=== PATIENT | female | born 1945 | race Caucasian/White ===

== ENCOUNTER 2019-08-14 09:57 | Inpatient (IN) | payer MEDICARE, BC ==
[~2019-08-14] VITALS: Ht 170.2 cm; Wt 59.7 kg
[2019-08-14] VITALS (11 sets, daily range): BP systolic 100–168; BP diastolic 50–85
[2019-08-14] MEDS ORDERED: heparin 10,000 units/1 ML INJ IV ONE (10:10)
[2019-08-14] MEDS ORDERED: NO HOME MEDS (10:14)
[2019-08-14] MEDS: heparin 25,000 UNIT/250ml bag 250 ML IV SCH (10:37)
[2019-08-14 10:38] LABS: PARTIAL THROMBOPLASTIN TIME 21 SECONDS (22-32)
[2019-08-14] MEDS ORDERED: morphine 4 MG/ML inj SYRINge IV ONE (10:50)
[2019-08-14] MEDS ORDERED: ondansetron/PF 4mg/2ml inj IV ONE (10:50)
[2019-08-14] MEDS ORDERED: metoprolol tartrate 1mg/ml inj IV ONE (11:55)
[2019-08-14] MEDS ORDERED: normal saline 1000ml 1,000 ML IV SCH (11:55)
[2019-08-14] MEDS ORDERED: MAGNESIUM SULFATE 4 MEQ/ML (5gm/10ml) injection ONE (12:00)
[2019-08-14] MEDS ORDERED: calcium chloride 100 MG/1 ML inj IV ONE (12:00)
[2019-08-14] MEDS ORDERED: aminocaproic acid 250 MG/1 ML inj. ONE (12:00)
[2019-08-14] MEDS ORDERED: ondansetron/PF 4mg/2ml inj IV PRN (12:00)
[2019-08-14] MEDS ORDERED: magnesium hydroxide 30ml (MOM) UD suspension PO PRN ×2 (12:00→19:30)
[2019-08-14] MEDS ORDERED: FLU VACC QS2019-20 36MOS UP/PF 60 MCG/0.5 ML SYRINGE IMVAC ONE (12:00)
[2019-08-14] MEDS ORDERED: phenylephrine 10mg/ml inj. ONE (12:00)
[2019-08-14] MEDS ORDERED: methylPREDNISolone sod. succ. 500mg inj ONE (12:00)
[2019-08-14] MEDS ORDERED: potassium Cl 2 mEq/ml inj IV ONE (12:00)
[2019-08-14] MEDS ORDERED: heparin 10,000 units/1 ML INJ ONE ×2 (12:00)
[2019-08-14] MEDS ORDERED: acetaminophen 325mg tablet PO PRN ×2 (12:00→19:30)
[2019-08-14] MEDS ORDERED: papaverine 30 mg/ml 2ml inj. ONE (12:00)
[2019-08-14] MEDS ORDERED: mag hydrox/Alum hydrox/simeth 30ml oral suspension PO PRN (12:00)
[2019-08-14] MEDS ORDERED: albumin (human) 25% 100 ML IV solution IV ONE (12:00)
[2019-08-14] MEDS ORDERED: heparin 1,000 units/ml 10ml inj ONE (12:00)
[2019-08-14] MEDS ORDERED: morphine 2 MG/ML inj. syringe IV PRN ×2 (12:00)
[2019-08-14] MEDS ORDERED: LIDOcaine 2% (20 mg/ml) 5ml cardiac syringe ONE (12:00)
[2019-08-14] MEDS ORDERED: sodium bicarbonate (8.4%) 1 mEq/ml syringe ONE (12:00)
--- NOTE | 2019-08-14 12:46 | NUR ---
ASSUMED CARE OF PT FROM PETER ROLLE, PHARMACY IS REQUESTING CREATINE LEVEL BEFORE STARTING TIROFIBAN
--- NOTE | 2019-08-14 12:57 | NUR ---
DR WARE GAVE VERBAL ORDERS FOR MEDS, PHARMACY WAS HELPING INPUT THOSE ORDERS BUT THERE NEEDS TO BE A CREATININE LEVEL DRAWN FIRST, PHARMACY ADCVISED THEY WOULD BE INPUTING THE ORDER FOR THE CREATININE DRAW.
--- NOTE | 2019-08-14 13:07 | NUR ---
PT IS RESTING QUIETLY ON GURNEY, GCS 15, RESP EVEN AND UNLABORED, SKIN P/W/D, NO CHEST PAIN/DISCOMFORT, NO N/V, SR ON THE MONITOR, NO ECTOPY, STARTED 2ND IV ON RT AC, 20GU ON FIRST ATTEMPT
[2019-08-14 13:09] LABS: ALANINE AMINOTRANSFERASE 15 U/L (12-78); ALBUMIN 3.5 G/DL (3.4-5.0); ALBUMIN/GLOBULIN RATIO 0.9 (1.1-1.5); ALKALINE PHOSPHATASE 99 IU/L (46-116); ANION GAP 12 (8-16); ASPARTATE AMINO TRANSFERASE 19 U/L (10-37); BILIRUBIN,TOTAL 0.3 MG/DL (0.1-1.0); BLOOD UREA NITROGEN 9 MG/DL (7-18); BUN/CREATININE RATIO 11.8 (6.6-38.0); CALCIUM 8.3 MG/DL (8.5-10.1); CHLORIDE 111 MMOL/L (99-107); CREATININE 0.76 MG/DL (0.40-0.90); GLUCOSE 108 MG/DL (70-104); POTASSIUM 4.2 MMOL/L (3.5-5.1); SODIUM 145 MMOL/L (135-145); TOTAL CARBON DIOXIDE 22.5 MMOL/L (24-32); TOTAL PROTEIN 7.4 G/DL (6.4-8.2); eGFR 75 ML/MIN
--- NOTE | 2019-08-14 13:09 | NUR ---
PT IS AWARE OF PLAN TO GO TO FASHION DIRECTOR AT 1800
[2019-08-14] MEDS: normal saline 1000ml 1,000 ML IV SCH (13:15)
--- NOTE | 2019-08-14 14:00 | NUR ---
Pt arrived to floor. Vitals stable, Pt alert and oriented. Pt oriented to room, bed, call light.
[2019-08-14] MEDS ORDERED: fentaNYL/PF 50MCG/1 ML 2ML syringe ONE (15:50)
[2019-08-14] MEDS ORDERED: midazolam 2 mg/2 ml injection ONE (15:50)
[2019-08-14] MEDS: tirofiban 5mg in NS 100mL 100 ML IV SCH ×2 (15:50→19:37)
[2019-08-14] MEDS ORDERED: iohexol 350 MG/ML 50ML vial IV ONE ×2 (15:51→16:49)
[2019-08-14] MEDS ORDERED: LIDOcaine 1% (10mg/ml)w/preservative injection 20ml MDV ONE (15:51)
[2019-08-14] MEDS ORDERED: iohexol 350MG/ML 100ml bottle IV ONE (15:51)
--- NOTE | 2019-08-14 16:18 | NUR ---
Pt wheeled down in bed to chemistry lab instructor.
--- NOTE | 2019-08-14 16:53 | NUR ---
PAGER ID: [phone] MESSAGE: 2016, Paris Buchanan has a critical 6 hour trop of 3.14. Patient is currently in the landscape laborer. LATA
--- NOTE | 2019-08-14 17:30 | NUR ---
Problems reprioritized. Patient report given, questions answered & plan of care reviewed with Fuentes ROLLE, CICU.
--- NOTE | 2019-08-14 17:43 | NUR ---
Problems reprioritized. Patient report given, questions answered & plan of care reviewed with Fuentes in CICU.
--- NOTE | 2019-08-14 18:21 | NUR ---
Patient arrived to floor at 1805 from short stay and oriented to room. Right sheath sight stable; transduced to monitor. Patient alert and oriented with call light in reach. Report given to Shanita ROLLE with all questions answered.
--- NOTE | 2019-08-14 18:32 | NUR ---
Patient in room CICU 2013. I have received report and had the opportunity to ask questions and assume patient care.
[2019-08-14] MEDS: metoprolol tartrate 25mg tablet PO SCH (19:12)
[2019-08-14] MEDS: carVEDilol 3.125mg tablet PO SCH (19:12)
--- NOTE | 2019-08-14 19:18 | NUR ---
vascular at bedside to perform vein mapping
[2019-08-14] MEDS ORDERED: HYDROcodone/acetaminophen 10/325mg tab PO PRN ×2 (19:30)
[2019-08-14] MEDS ORDERED: proCHLORperazine 10 MG/2 ml inj IV PRN (19:30)
[2019-08-14] MEDS ORDERED: nitroGLYCERIN 0.4mg SUBLingual tab SL PRN (19:30)
[2019-08-14] MEDS: nitroGLYCERIN-Tridil 50MG/D5W 250 ML IV SCH (19:30)
[2019-08-14] MEDS ORDERED: morphine 10mg/ml inj. IV PRN (19:30)
[2019-08-14] MEDS ORDERED: OXAZEpam 15mg capsule PO PRN (19:30)
[2019-08-14] MEDS ORDERED: cyclobenzaprine 10mg tablet PO PRN (19:30)
[2019-08-14] MEDS: docusate sod 100mg capsule PO SCH (21:51)
[2019-08-14] MEDS: heparin 10,000 units/1 ML INJ IV PRN (22:48)
[2019-08-15] VITALS (22 sets, daily range): BP systolic 91–170; BP diastolic 43–85
[2019-08-15] MEDS: normal saline 1000ml 1,000 ML IV SCH ×2 (00:31→21:50)
[2019-08-15] MEDS: morphine 4 MG/ML inj SYRINge IV PRN ×3 (00:58→20:18)
[2019-08-15 04:19] LABS: BASOPHILS % (AUTO) 0.4 % (0-1); EOSINOPHILS # (AUTO) 0.1 X10'3 (0-0.9); EOSINOPHILS % (AUTO) 0.6 % (0-6); HEMATOCRIT 34.5 % (35.0-45.0); HEMOGLOBIN 11.5 g/dl (12.0-16.0); LYMPHOCYTES # (AUTO) 2.5 X10'3 (1.1-4.8); LYMPHOCYTES % (AUTO) 28.2 % (21-51); MEAN CORPUSCULAR HEMOGLOBIN 30.1 PG (27.0-31.0); MEAN CORPUSCULAR HGB CONC 33.3 g/dL (33.0-36.5); MEAN CORPUSCULAR VOLUME 90.4 FL (78-98); MEAN PLATELET VOLUME 9.3 FL (7.4-10.4); MONOCYTES # (AUTO) 0.5 X10'3 (0-0.9); MONOCYTES % (AUTO) 5.8 % (2-12); NEUTROPHILS # (AUTO) 5.7 X10'3 (1.8-7.7); PLATELET COUNT 215 X10'3 (140-440); RED BLOOD COUNT 3.82 X10'6 (4.20-5.60); RED CELL DISTRIBUTION WIDTH 14.1 % (11.5-14.5); WHITE BLOOD COUNT 8.8 X10'3 (4.5-11.0)
[2019-08-15 04:24] LABS: ALBUMIN 2.9 G/DL (3.4-5.0); ANION GAP 10 (8-16); BLOOD UREA NITROGEN 10 MG/DL (7-18); BUN/CREATININE RATIO 14.3 (6.6-38.0); CALCIUM 7.9 MG/DL (8.5-10.1); CHLORIDE 107 MMOL/L (99-107); GLUCOSE 118 MG/DL (70-104); POTASSIUM 3.7 MMOL/L (3.5-5.1); SODIUM 143 MMOL/L (135-145); TOTAL CARBON DIOXIDE 25.6 MMOL/L (24-32); eGFR 82 ML/MIN
[2019-08-15] MEDS: tirofiban 5mg in NS 100mL 100 ML IV SCH (04:56)
--- NOTE | 2019-08-15 07:23 | NUR ---
Report given to Krysta Couch RN.
[2019-08-15] MEDS ORDERED: atorvastatin 20mg tablet PO SCH ×2 (08:00)
[2019-08-15] MEDS ORDERED: aspirin 81mg tablet.DR PO SCH (08:00)
[2019-08-15] MEDS ORDERED: insulin regular, human 100 UNIT in normal saline 100ml IV soln 100 ML IV SCH ×2 (09:11)
[2019-08-15] MEDS ORDERED: dextrose 50%-water 50ml dispensing syringe IV PRN (09:15)
[2019-08-15] MEDS ORDERED: MESSAGE TO NURSING PO ONE ×5 (09:15→10:00)
[2019-08-15] MEDS ORDERED: vancomycin/NS 1 GM ADD-VANTAGE 250 ML IV ONE (09:15)
[2019-08-15] MEDS ORDERED: potassium Cl 20 mEq SR tablet PO PRN (09:15)
[2019-08-15] MEDS ORDERED: MALTODEXTRIN/FRUCTOSE 0.68 KCAL/ML LIQUID 296ML BOTTLE PO ONE (09:15)
[2019-08-15] MEDS ORDERED: insulin glargine (Lantus) pen - multi-dose SQ PRN (09:15)
[2019-08-15] MEDS ORDERED: gabapentin 400mg capsule PO ONE (09:15)
[2019-08-15] MEDS ORDERED: magnesium 4gm in 100ml NS 100 ML IV PRN (09:15)
[2019-08-15] MEDS ORDERED: potassium Cl 20mEq/100mL bag 100 ML IV PRN (09:15)
[2019-08-15] MEDS ORDERED: magnesium 2GM in 50ml NS 50 ML IV PRN (09:15)
[2019-08-15] MEDS ORDERED: cefazolin/dext.iso 2gm/50ml 50 ML IV ONE (09:15)
[2019-08-15] MEDS: docusate sod 100mg capsule PO SCH ×2 (09:52→20:24)
[2019-08-15] MEDS: carVEDilol 3.125mg tablet PO SCH ×2 (09:53→20:47)
[2019-08-15] MEDS: metoprolol tartrate 25mg tablet PO SCH ×2 (09:53→21:40)
[2019-08-15 10:45] LABS: HEMATOCRIT 33.5 % (35.0-45.0); HEMOGLOBIN 11.2 g/dl (12.0-16.0); MEAN CORPUSCULAR HEMOGLOBIN 30.2 PG (27.0-31.0); MEAN CORPUSCULAR HGB CONC 33.5 g/dL (33.0-36.5); MEAN CORPUSCULAR VOLUME 90.1 FL (78-98); MEAN PLATELET VOLUME 8.8 FL (7.4-10.4); PLATELET COUNT 210 X10'3 (140-440); RED BLOOD COUNT 3.71 X10'6 (4.20-5.60); RED CELL DISTRIBUTION WIDTH 13.8 % (11.5-14.5); WHITE BLOOD COUNT 7.4 X10'3 (4.5-11.0)
[2019-08-15 10:55] LABS: CLARITY,URINE CLEAR (Clear); COLOR,URINE YELLOW (Yellow); GLUCOSE, URINE NEGATIVE (Neg); KETONES,URINE NEGATIVE (Neg); LEUKOCYTE ESTERASE ,URINE NEGATIVE (Neg); NITRITES, URINE NEGATIVE (Neg); OCCULT BLOOD,URINE TRACE-INTACT (Neg); PROTEIN,URINE NEGATIVE (Neg); UROBILINOGEN,URINE 0.2 E.U/dL (0.2-1.0)
[2019-08-15 10:57] LABS: ANION GAP 10 (8-16); BLOOD UREA NITROGEN 9 MG/DL (7-18); BUN/CREATININE RATIO 12.5 (6.6-38.0); CALCIUM 7.9 MG/DL (8.5-10.1); CHLORIDE 111 MMOL/L (99-107); CREATININE 0.72 MG/DL (0.40-0.90); GLUCOSE 84 MG/DL (70-104); POTASSIUM 3.8 MMOL/L (3.5-5.1); SODIUM 144 MMOL/L (135-145); TOTAL CARBON DIOXIDE 23.4 MMOL/L (24-32); eGFR 79 ML/MIN
[2019-08-15 10:59] LABS: HEMOGLOBIN A1C 5.6 % (4.5-6.2)
[2019-08-15 11:00] LABS: UA COLLECTION TYPE CLN CATCH MIDSTREAM
[2019-08-15 11:02] LABS: MUCUS STRANDS FEW /LPF (Neg); SQUAMOUS EPITHELIAL CELL,UR MODERATE /LPF (FEW)
[2019-08-15 11:05] LABS: RBC,URINE 0-2 /HPF (0-2)
[2019-08-15 11:06] LABS: BACTERIA,URINE 1+ /HPF (Neg); TRANSITIONAL EPI CELLS,URINE FEW /HPF; WBC CLUMPS,URINE FEW /HPF (NEGATIVE)
[2019-08-15 11:55] LABS: PARTIAL THROMBOPLASTIN TIME 45 SECONDS (22-32)
--- NOTE | 2019-08-15 12:11 | NUR ---
PTT came back at 45 which is in therapeutic range, patient remains at 700 units per HOUR, Lab was late on posting this result due to misplacing the tube so next redraw will be at 6pm
[2019-08-15] MEDS: heparin 25,000 UNIT/250ml bag 250 ML IV SCH (14:34)
[2019-08-15] MEDS ORDERED: iohexol 350MG/ML 100ml bottle IV ONE (16:16)
[2019-08-15] MEDS ORDERED: ringers solution, lacted 1,000 ML IV ONE (18:14)
--- NOTE | 2019-08-15 18:20 | NUR ---
Patient in room CICU 2013. I have received report from SARIAH Bolaños and had the opportunity to ask questions and assume patient care. Right arterial line is intact, surrounding area is soft, no bruising, distal pulses intact. Patient is awake and alert, in no distress at this time.
--- NOTE | 2019-08-15 18:20 | NUR ---
Problems reprioritized. Patient report given, questions answered & plan of care reviewed with ANDRIA ROLLE.
[2019-08-15] MEDS: nitroGLYCERIN-Tridil 50MG/D5W 250 ML IV SCH ×2 (19:17→21:43)
--- NOTE | 2019-08-15 19:37 | NUR ---
Phone call to Dr. Carrion re: Heparin drip. Turn off heparin drip 4 hours prior to surgery.
[2019-08-15] MEDS ORDERED: mupirocin 2% ointment 22GM NS SCH (20:00)
[2019-08-15] MEDS ORDERED: metoprolol tartrate 12.5mg (1/2 tablet) PO SCH (20:00)
[2019-08-15] MEDS: heparin 10,000 units/1 ML INJ IV PRN (20:33)
[2019-08-15 20:56] LABS: ABG BASE EXCESS -2.3 mmol/L (-2.0-3.0); ABG HCO3 21.9 mmol/L (22.0-26.0); ABG OXYGEN SATURATION 96.5 % (95-98); ABG PCO2 (T) 34.1 mmHg (35.0-45.0); ABG PH (T) 7.422 (7.350-7.450); ABG PO2 (T) 78.8 mmHg (83-108); FCOHb 0.3 % (0.5-1.5); FMetHb 0.3 % (0.3-1.12); FO2Hb 95.9 % (94-100); PATIENT TEMPERATURE 36.2; TOTAL HEMOGLOBIN 11.5 G/dl (12.0-16.0)
--- NOTE | 2019-08-15 21:25 | NUR ---
Dr. Carrion updated on patients compliant of Chest pain. ECG done no changes noted. No new orders at this time.
[2019-08-15] MEDS ORDERED: mupirocin 2% nasal ointment 1gm UD NS SCH (22:00)
[2019-08-15] MEDS ORDERED: mupirocin 2% nasal ointment 1gm UD NS ONE (22:05)
[2019-08-16] VITALS (23 sets, daily range): BP systolic 80–168; BP diastolic 40–77
[2019-08-16 03:26] LABS: BASOPHILS % (AUTO) 0.5 % (0-1); EOSINOPHILS # (AUTO) 0.1 X10'3 (0-0.9); EOSINOPHILS % (AUTO) 1.2 % (0-6); HEMATOCRIT 31.4 % (35.0-45.0); HEMOGLOBIN 10.6 g/dl (12.0-16.0); LYMPHOCYTES # (AUTO) 2.1 X10'3 (1.1-4.8); LYMPHOCYTES % (AUTO) 31.2 % (21-51); MEAN CORPUSCULAR HEMOGLOBIN 30.3 PG (27.0-31.0); MEAN CORPUSCULAR HGB CONC 33.7 g/dL (33.0-36.5); MEAN CORPUSCULAR VOLUME 90.1 FL (78-98); MEAN PLATELET VOLUME 8.9 FL (7.4-10.4); MONOCYTES # (AUTO) 0.5 X10'3 (0-0.9); MONOCYTES % (AUTO) 7.3 % (2-12); NEUTROPHILS % (AUTO) 59.8 % (42-75); PLATELET COUNT 178 X10'3 (140-440); RED BLOOD COUNT 3.48 X10'6 (4.20-5.60); RED CELL DISTRIBUTION WIDTH 13.7 % (11.5-14.5); WHITE BLOOD COUNT 6.8 X10'3 (4.5-11.0)
[2019-08-16 03:34] LABS: ALBUMIN 2.8 G/DL (3.4-5.0); ANION GAP 8 (8-16); BLOOD UREA NITROGEN 10 MG/DL (7-18); BUN/CREATININE RATIO 14.3 (6.6-38.0); CALCIUM 7.9 MG/DL (8.5-10.1); CHLORIDE 112 MMOL/L (99-107); GLUCOSE 93 MG/DL (70-104); MAGNESIUM 1.7 MG/DL (1.5-2.4); POTASSIUM 3.9 MMOL/L (3.5-5.1); SODIUM 144 MMOL/L (135-145); TOTAL CARBON DIOXIDE 24.5 MMOL/L (24-32); eGFR 82 ML/MIN
[2019-08-16] MEDS ORDERED: cefazolin/dext.iso 2gm/50ml 50 ML IV ONE (05:00)
[2019-08-16] MEDS ORDERED: vancomycin/NS 1 GM ADD-VANTAGE 250 ML IV ONE (05:00)
[2019-08-16] MEDS ORDERED: ROPIVAcaine 0.5% (5mg/ml) 30ml vial ONE (05:12)
[2019-08-16] MEDS: insulin regular, human 100 UNIT in normal saline 100ml IV soln 100 ML IV SCH ×4 (05:48→11:54)
[2019-08-16] MEDS ORDERED: LORazepam 2 mg/ml vial IV ONE (06:00)
[2019-08-16] MEDS ORDERED: famotidine 20mg tablet PO ONE (06:00)
--- NOTE | 2019-08-16 06:06 | NUR ---
Valuables sent to safe. $115 abbasi, 3 credit cards, check book.
--- NOTE | 2019-08-16 06:10 | NUR ---
Problems reprioritized. Patient report given, questions answered & plan of care reviewed with SARIAH Hassan. OR team at bedside. Vancomycin started at 0615.
[2019-08-16] MEDS ORDERED: protamine sulf. 10mg/ml inj. IV ONE (06:37)
[2019-08-16] MEDS ORDERED: propofol 10mg/ml 20ml vial IV ONE (06:37)
[2019-08-16] MEDS ORDERED: nitroGLYCERIN in D5W 50mg/250ml (Tridil) infusion IV ONE (06:37)
[2019-08-16] MEDS ORDERED: isoflurane 100ml inhalation liquid IH ONE (06:37)
[2019-08-16] MEDS ORDERED: DOPamine/D5W 400mg/250ml bag IV ONE (06:37)
[2019-08-16] MEDS ORDERED: NORepinephrine bitartrate 8 MG in NS 250 ML BAG (32 mcg/ml) IV ONE (06:37)
[2019-08-16] MEDS ORDERED: SUFENTANIL CITRATE 50 MCG/ML 2ml ampule IV ONE (06:38)
[2019-08-16] MEDS ORDERED: midazolam 2 mg/2 ml injection ONE (06:39)
[2019-08-16 07:20] LABS: ABG BASE EXCESS -2.7 mmol/L (-2.0-3.0); ABG HCO3 21.8 mmol/L (22.0-26.0); ABG OXYGEN SATURATION 99.4 % (95-98); ABG PCO2 36.7 mmHg (35.0-45.0); ABG PH 7.392 (7.350-7.450); CL (ABG) 109 mmol/L (99-107); FMetHb 0.4 % (0.3-1.12); GLUCOSE (ABG) 94 mg/dl (70-104); IONIZED CA (ABG) 1.14 mmol/L (1.03-1.32); K (ABG) 3.5 mmol/L (3.3-5.1); NA (ABG) 148 mmol/L (135-145); TOTAL HEMOGLOBIN 10.5 G/dl (12.0-16.0)
[2019-08-16] MEDS ORDERED: heparin 10,000 units/1 ML INJ IR ONE (07:31)
[2019-08-16] MEDS ORDERED: papaverine 30 mg/ml 2ml inj. IA ONE (07:32)
[2019-08-16] MEDS ORDERED: etomidate 2mg/ml inj. ONE ×2 (07:34→09:37)
[2019-08-16] MEDS ORDERED: ipratropium/albuterol 3ml nebule IH PRN (08:20)
[2019-08-16 08:21] LABS: ABG BASE EXCESS 0.4 mmol/L (-2.0-3.0); ABG HCO3 23.9 mmol/L (22.0-26.0); ABG OXYGEN SATURATION 99.6 % (95-98); ABG PCO2 33.7 mmHg (35.0-45.0); ABG PH 7.469 (7.350-7.450); ABG PO2 399.5 mmHg (60.0-100.0); CL (ABG) 106 mmol/L (99-107); FCOHb 0.8 % (0.5-1.5); FMetHb 0.1 % (0.3-1.12); FO2Hb 98.7 % (94-100); GLUCOSE (ABG) 93 mg/dl (70-104); IONIZED CA (ABG) 0.98 mmol/L (1.03-1.32); K (ABG) 5.8 mmol/L (3.3-5.1); NA (ABG) 135 mmol/L (135-145); TOTAL HEMOGLOBIN 7.5 G/dl (12.0-16.0)
[2019-08-16 08:46] LABS: ABG BASE EXCESS VENOUS -1.7 mmol/L; ABG HCO3 VENOUS 22.9 mmol/L; ABG PCO2 VENOUS 37.9 mmHg; CL (ABG) 107 mmol/L (99-107); FCOHb VENOUS 1.4 %; FHHb VENOUS 15.2 %; FMetHb VENOUS 0.1 %; FO2Hb VENOUS 83.3 %; GLUCOSE (ABG) 104 mg/dl (70-104); IONIZED CA (ABG) 1.05 mmol/L (1.03-1.32); K (ABG) 5.3 mmol/L (3.3-5.1); NA (ABG) 138 mmol/L (135-145); TOTAL HEMOGLOBIN 7.7 G/dl (12.0-16.0)
[2019-08-16 09:25] LABS: ABG BASE EXCESS -4.4 mmol/L (-2.0-3.0); ABG OXYGEN SATURATION 99.4 % (95-98); ABG PCO2 33.4 mmHg (35.0-45.0); ABG PH 7.395 (7.350-7.450); ABG PO2 289.8 mmHg (60.0-100.0); CL (ABG) 108 mmol/L (99-107); FCOHb 1.1 % (0.5-1.5); FMetHb 0.8 % (0.3-1.12); FO2Hb 97.5 % (94-100); GLUCOSE (ABG) 112 mg/dl (70-104); IONIZED CA (ABG) 1.05 mmol/L (1.03-1.32); NA (ABG) 137 mmol/L (135-145)
[2019-08-16] MEDS ORDERED: acetaminophen 1,000mg/100ml IV 100 ML IV ONE (09:37)
[2019-08-16] MEDS ORDERED: glycopyrrolate 0.2mg/ml inj ONE (09:37)
[2019-08-16] MEDS ORDERED: rocuronium 10mg/ml inj IV ONE (09:37)
[2019-08-16] MEDS ORDERED: epiNEPHrine 1 mg/ml inj ONE (09:37)
[2019-08-16] MEDS ORDERED: phenylephrine 10mg/ml inj. ONE (09:37)
[2019-08-16] MEDS ORDERED: LIDOcaine 2% (20mg/ml) 5ml vial ONE (09:37)
[2019-08-16 09:50] LABS: ABG BASE EXCESS -2.3 mmol/L (-2.0-3.0); ABG HCO3 22.4 mmol/L (22.0-26.0); ABG OXYGEN SATURATION 99.1 % (95-98); ABG PCO2 37.9 mmHg (35.0-45.0); ABG PO2 423.7 mmHg (60.0-100.0); CL (ABG) 106 mmol/L (99-107); FCOHb 0.7 % (0.5-1.5); FMetHb 0.8 % (0.3-1.12); FO2Hb 97.6 % (94-100); GLUCOSE (ABG) 109 mg/dl (70-104); K (ABG) 4.6 mmol/L (3.3-5.1); NA (ABG) 133 mmol/L (135-145); TOTAL HEMOGLOBIN 7.1 G/dl (12.0-16.0)
[2019-08-16 10:46] LABS: ABG BASE EXCESS VENOUS -2.5 mmol/L; ABG HCO3 VENOUS 23.3 mmol/L; ABG PCO2 VENOUS 44.5 mmHg; ABG PO2 VENOUS 36.5 mmHg; CL (ABG) 109 mmol/L (99-107); FCOHb VENOUS 0.9 %; FMetHb VENOUS 0.8 %; FO2Hb VENOUS 65.3 %; GLUCOSE (ABG) 134 mg/dl (70-104); IONIZED CA (ABG) 1.24 mmol/L (1.03-1.32); K (ABG) 4.3 mmol/L (3.3-5.1); NA (ABG) 138 mmol/L (135-145); TOTAL HEMOGLOBIN 8.6 G/dl (12.0-16.0)
[2019-08-16] MEDS ORDERED: nitroGLYCERIN-Tridil 50MG/D5W 250 ML IV PRN (11:18)
[2019-08-16] MEDS ORDERED: niCARDipine-NS 40mg/200ml IVPB 200 ML IV PRN (11:18)
[2019-08-16] MEDS ORDERED: DOPamine 400mg/D5W 250ml 250 ML IV PRN (11:18)
[2019-08-16] MEDS ORDERED: magnesium 4gm in 100ml NS 100 ML IV PRN (11:20)
[2019-08-16] MEDS ORDERED: Neutra Phos packet PO PRN (11:20)
[2019-08-16] MEDS ORDERED: metoclopramide 5 mg/ml inj IV PRN (11:20)
[2019-08-16] MEDS ORDERED: dextrose 50%-water 50ml dispensing syringe IV PRN (11:20)
[2019-08-16] MEDS ORDERED: sodium phosphate inj. 15 MMOL in dextrose 5%-water 150 ML IV PRN (11:20)
[2019-08-16] MEDS ORDERED: sodium phosphate inj. 30 MMOL in dextrose 5%-water 250 ML IV PRN (11:20)
[2019-08-16] MEDS ORDERED: magnesium hydroxide 30ml (MOM) UD suspension PO PRN (11:20)
[2019-08-16] MEDS ORDERED: insulin regular, human inj. 100 UNITS in normal saline 100ml IV soln 100 ML IV SCH ×2 (11:20)
[2019-08-16] MEDS ORDERED: pantoprazole 40 MG vial IV ONE (11:20)
[2019-08-16] MEDS ORDERED: ondansetron/PF 4mg/2ml inj IV PRN (11:20)
[2019-08-16] MEDS ORDERED: acetaminophen 325mg tablet PO PRN (11:20)
[2019-08-16] MEDS ORDERED: normal saline 250ml IV soln 250 ML IV PRN (11:20)
[2019-08-16] MEDS ORDERED: potassium Cl 20 mEq SR tablet PO PRN (11:20)
--- NOTE | 2019-08-16 11:20 | NUR ---
Received to room 2014, accompanied by MDs and surgical crew, Jenaro Saxena. Placed on ventilator, to quality assurance monitor chassis, arterial line and PA line pressure monitored. Chest tubes to suction at 20 cm. Philip cath to gravity drainage. Dressings are dry and intact. See assessment record. All vasoactive drugs are infusing via central line.
[2019-08-16] MEDS: albumin (Human) 5% 250ml 250 ML IV PRN ×3 (11:44→18:25)
[2019-08-16 11:46] LABS: ABG BASE EXCESS -3.5 mmol/L (-2.0-3.0); ABG HCO3 21.2 mmol/L (22.0-26.0); ABG OXYGEN SATURATION 95.8 % (95-98); ABG PCO2 (T) 36.4 mmHg (35.0-45.0); ABG PH (T) 7.381 (7.350-7.450); ABG PO2 (T) 79.4 mmHg (83-108); FCOHb 0.3 % (0.5-1.5); FMetHb 0.3 % (0.3-1.12); FO2Hb 95.2 % (94-100); PATIENT TEMPERATURE 36.5; PEEP 5 cm H2O; RESPIRATORY RATE 12 b/min; TIDAL VOLUME 500 mL; TOTAL HEMOGLOBIN 12.7 G/dl (12.0-16.0)
[2019-08-16 12:02] LABS: BASOPHILS # (AUTO) 0.1 X10'3 (0-0.2); BASOPHILS % (AUTO) 0.4 % (0-1); EOSINOPHILS # (AUTO) 0.1 X10'3 (0-0.9); EOSINOPHILS % (AUTO) 0.5 % (0-6); HEMATOCRIT 35.4 % (35.0-45.0); HEMOGLOBIN 11.8 g/dl (12.0-16.0); LYMPHOCYTES # (AUTO) 1.1 X10'3 (1.1-4.8); LYMPHOCYTES % (AUTO) 8.4 % (21-51); MEAN CORPUSCULAR HGB CONC 33.4 g/dL (33.0-36.5); MEAN CORPUSCULAR VOLUME 89.8 FL (78-98); MEAN PLATELET VOLUME 8.9 FL (7.4-10.4); MONOCYTES # (AUTO) 0.5 X10'3 (0-0.9); MONOCYTES % (AUTO) 3.7 % (2-12); NEUTROPHILS # (AUTO) 11.6 X10'3 (1.8-7.7); PLATELET COUNT 125 X10'3 (140-440); RED BLOOD COUNT 3.94 X10'6 (4.20-5.60); WHITE BLOOD COUNT 13.4 X10'3 (4.5-11.0)
[2019-08-16] MEDS: sodium chloride 0.45% 1,000 ML IV SCH (12:03)
[2019-08-16] MEDS: NORepinephrine 8mg/ 250ml NS 250 ML IV SCH (12:13)
[2019-08-16 12:15] LABS: PARTIAL THROMBOPLASTIN TIME 22 SECONDS (22-32)
[2019-08-16 12:27] LABS: ALANINE AMINOTRANSFERASE 13 U/L (12-78); ALBUMIN 2.9 G/DL (3.4-5.0); ALBUMIN/GLOBULIN RATIO 1.1 (1.1-1.5); ALKALINE PHOSPHATASE 64 IU/L (46-116); ANION GAP 8 (8-16); ASPARTATE AMINO TRANSFERASE 34 U/L (10-37); BILIRUBIN,TOTAL 0.7 MG/DL (0.1-1.0); BLOOD UREA NITROGEN 8 MG/DL (7-18); BUN/CREATININE RATIO 10.8 (6.6-38.0); CALCIUM 8.3 MG/DL (8.5-10.1); CHLORIDE 114 MMOL/L (99-107); CREATININE 0.74 MG/DL (0.40-0.90); GLUCOSE 178 MG/DL (70-104); MAGNESIUM 3.7 MG/DL (1.5-2.4); PHOSPHORUS 2.6 MG/DL (2.3-4.5); POTASSIUM 4.3 MMOL/L (3.5-5.1); SODIUM 145 MMOL/L (135-145); TOTAL CARBON DIOXIDE 22.7 MMOL/L (24-32); TOTAL PROTEIN 5.5 G/DL (6.4-8.2); eGFR 77 ML/MIN
[2019-08-16] MEDS: morphine 4 MG/ML inj SYRINge IV PRN ×6 (12:35→22:00)
[2019-08-16] MEDS ORDERED: insulin Lispro (HumaLOG) vial - multi-dose SQ SCH (13:00)
--- NOTE | 2019-08-16 14:37 | NUR ---
Contacted Dr. Carrion via phone. Patient went into a.fib, rate in the one-teens. BP initially was unaffected, then bp became hypotensive. Turned up Norepinephrine. Dopamine at 3. EKG confirms a.fib. CO/CI decreased. Dr. Carrion updated, order for amiodarone given and use pacemaker if heart rate becomes too low.
[2019-08-16] MEDS ORDERED: amiodarone 150mg/dext, iso-os 100 ML IV ONE (14:40)
[2019-08-16] MEDS: gabapentin 300mg capsule PO SCH ×2 (14:52→20:46)
[2019-08-16] MEDS: amiodarone/D5 360MG/200ML BAG 200 ML IV SCH ×2 (15:06→20:27)
[2019-08-16] MEDS: potassium Cl 20mEq/100mL bag 100 ML IV PRN ×5 (15:11→23:08)
[2019-08-16] MEDS: ceFAZolin 1GM/D5W- ADD-VANTAGE 50 ML IV SCH (16:33)
[2019-08-16 18:14] LABS: BASOPHILS % (AUTO) 0.1 % (0-1); EOSINOPHILS % (AUTO) 0.1 % (0-6); HEMATOCRIT 32.3 % (35.0-45.0); HEMOGLOBIN 10.7 g/dl (12.0-16.0); LYMPHOCYTES # (AUTO) 0.9 X10'3 (1.1-4.8); LYMPHOCYTES % (AUTO) 5.4 % (21-51); MEAN CORPUSCULAR HEMOGLOBIN 30.1 PG (27.0-31.0); MEAN CORPUSCULAR HGB CONC 33.2 g/dL (33.0-36.5); MEAN CORPUSCULAR VOLUME 90.5 FL (78-98); MEAN PLATELET VOLUME 9.5 FL (7.4-10.4); MONOCYTES # (AUTO) 0.5 X10'3 (0-0.9); NEUTROPHILS # (AUTO) 14.4 X10'3 (1.8-7.7); NEUTROPHILS % (AUTO) 91.4 % (42-75); PLATELET COUNT 153 X10'3 (140-440); RED BLOOD COUNT 3.57 X10'6 (4.20-5.60); RED CELL DISTRIBUTION WIDTH 13.7 % (11.5-14.5); WHITE BLOOD COUNT 15.7 X10'3 (4.5-11.0)
[2019-08-16 18:19] LABS: ALBUMIN 3.5 G/DL (3.4-5.0); ANION GAP 11 (8-16); BLOOD UREA NITROGEN 10 MG/DL (7-18); BUN/CREATININE RATIO 12.2 (6.6-38.0); CALCIUM 8.3 MG/DL (8.5-10.1); CHLORIDE 113 MMOL/L (99-107); CREATININE 0.82 MG/DL (0.40-0.90); GLUCOSE 141 MG/DL (70-104); MAGNESIUM 2.9 MG/DL (1.5-2.4); PHOSPHORUS 2.5 MG/DL (2.3-4.5); POTASSIUM 3.7 MMOL/L (3.5-5.1); SODIUM 147 MMOL/L (135-145); eGFR 68 ML/MIN
[2019-08-16] MEDS ORDERED: DOBUTamine-DoBUTrex 500mg/D5W 250 ML IV ONE (18:19)
--- NOTE | 2019-08-16 18:30 | NUR ---
Patient in room CICU 2013. I have received report from Sonya ROLLE and had the opportunity to ask questions and assume patient care.
--- NOTE | 2019-08-16 19:00 | NUR ---
dr Carrion was present at 1815. he looked at hemodynamics and gave order to start dobutamine at a low dose, and then try to get pt off dopamine and Levophed as possible to try to help reduce the elevated SVR.
[2019-08-16] MEDS: docusate sod 100mg capsule PO SCH (19:50)
[2019-08-16] MEDS: mupirocin 2% nasal ointment 1gm UD NS SCH (19:59)
[2019-08-16] MEDS: vancomycin/NS 1 GM ADD-VANTAGE 250 ML IV SCH (19:59)
--- NOTE | 2019-08-16 20:00 | NUR ---
Dr Carrion came by again around 1999 to assess pt again. Dobutamine was at 3. levo was at 2. CI was 1.7. requested to keep weaning Levophed off as possible.
[2019-08-16] MEDS ORDERED: DOBUTamine-DoBUTrex 500mg/D5W 250 ML IV PRN (21:20)
[2019-08-17] VITALS (24 sets, daily range): BP systolic 83–141; BP diastolic 48–82
[2019-08-17] MEDS: ceFAZolin 1GM/D5W- ADD-VANTAGE 50 ML IV SCH ×3 (00:19→16:14)
--- NOTE | 2019-08-17 00:23 | NUR ---
femstop was removed at 2330. site looks good. no hematoma. no bleeding. pt was sat up a few degrees at 2345. at 0000 she was increased to 30 degrees. for ventilator, RR decreased from 12 to 8 at 2330. did well. at 0000 placed on spontaneous. tolerating well at this time. continue to monitor.
[2019-08-17 02:06] LABS: ABG HCO3 19.6 mmol/L (22.0-26.0); ABG OXYGEN SATURATION 91.8 % (95-98); ABG PCO2 (T) 34.7 mmHg (35.0-45.0); ABG PO2 (T) 63.8 mmHg (83-108); FCOHb 0.3 % (0.5-1.5); FMetHb 0.2 % (0.3-1.12); FO2Hb 91.3 % (94-100); MINUTE VOLUME 5 L/min; PEEP 5 cm H2O; TIDAL VOLUME 500 mL; TOTAL HEMOGLOBIN 9.8 G/dl (12.0-16.0)
[2019-08-17] MEDS: morphine 4 MG/ML inj SYRINge IV PRN ×4 (02:12→08:28)
--- NOTE | 2019-08-17 02:27 | NUR ---
pt extubated at 0210. tolerated well. met all requirement. placed on 4L NC. doing well.
[2019-08-17] MEDS: amiodarone/D5 360MG/200ML BAG 200 ML IV SCH ×2 (02:28→08:34)
[2019-08-17 02:56] LABS: BASOPHILS % (AUTO) 0.1 % (0-1); EOSINOPHILS % (AUTO) 0 % (0-6); HEMATOCRIT 26.8 % (35.0-45.0); LYMPHOCYTES # (AUTO) 0.7 X10'3 (1.1-4.8); LYMPHOCYTES % (AUTO) 7.7 % (21-51); MEAN CORPUSCULAR HEMOGLOBIN 30.4 PG (27.0-31.0); MEAN CORPUSCULAR HGB CONC 33.5 g/dL (33.0-36.5); MEAN CORPUSCULAR VOLUME 90.7 FL (78-98); MEAN PLATELET VOLUME 9.7 FL (7.4-10.4); MONOCYTES # (AUTO) 0.4 X10'3 (0-0.9); NEUTROPHILS # (AUTO) 7.4 X10'3 (1.8-7.7); NEUTROPHILS % (AUTO) 87.2 % (42-75); PLATELET COUNT 102 X10'3 (140-440); RED BLOOD COUNT 2.95 X10'6 (4.20-5.60); WHITE BLOOD COUNT 8.5 X10'3 (4.5-11.0)
[2019-08-17 03:01] LABS: PARTIAL THROMBOPLASTIN TIME 25 SECONDS (22-32)
[2019-08-17 03:15] LABS: ALANINE AMINOTRANSFERASE 16 U/L (12-78); ALBUMIN 3.2 G/DL (3.4-5.0); ALBUMIN/GLOBULIN RATIO 1.4 (1.1-1.5); ALKALINE PHOSPHATASE 47 IU/L (46-116); ANION GAP 8 (8-16); ASPARTATE AMINO TRANSFERASE 78 U/L (10-37); BILIRUBIN,TOTAL 0.2 MG/DL (0.1-1.0); BLOOD UREA NITROGEN 10 MG/DL (7-18); BUN/CREATININE RATIO 13.9 (6.6-38.0); CALCIUM 7.7 MG/DL (8.5-10.1); CHLORIDE 115 MMOL/L (99-107); CREATININE 0.72 MG/DL (0.40-0.90); GLUCOSE 129 MG/DL (70-104); MAGNESIUM 2.3 MG/DL (1.5-2.4); PHOSPHORUS 3.1 MG/DL (2.3-4.5); POTASSIUM 4.6 MMOL/L (3.5-5.1); SODIUM 145 MMOL/L (135-145); TOTAL CARBON DIOXIDE 22.4 MMOL/L (24-32); TOTAL PROTEIN 5.5 G/DL (6.4-8.2); eGFR 79 ML/MIN
[2019-08-17] MEDS: magnesium 2GM in 50ml NS 50 ML IV PRN (05:04)
--- NOTE | 2019-08-17 06:18 | NUR ---
Problems reprioritized. Patient report given, questions answered & plan of care reviewed with Nicik ROLLE.
--- NOTE | 2019-08-17 06:49 | NUR ---
Patient in room CICU 2013. I have received report from SARIAH Stewart and had the opportunity to ask questions and assume patient care.
[2019-08-17] MEDS: docusate sod 100mg capsule PO SCH ×2 (07:25→20:50)
[2019-08-17] MEDS: vancomycin/NS 1 GM ADD-VANTAGE 250 ML IV SCH ×2 (07:25→20:50)
[2019-08-17] MEDS: gabapentin 300mg capsule PO SCH ×3 (07:26→20:50)
[2019-08-17] MEDS: mupirocin 2% nasal ointment 1gm UD NS SCH ×2 (07:26→20:50)
[2019-08-17] MEDS: atorvastatin 10mg tablet PO SCH (07:26)
[2019-08-17] MEDS ORDERED: aspirin 325mg tablet, delayed-release (Ecotrin) PO SCH (08:00)
[2019-08-17] MEDS ORDERED: metoprolol tartrate 12.5mg (1/2 tablet) PO SCH (08:00)
[2019-08-17] MEDS: HYDROcodone/acetaminophen 10/325mg tab PO PRN (13:48)
[2019-08-17] MEDS: insulin regular, human 100 UNIT in normal saline 100ml IV soln 100 ML IV SCH ×2 (14:20)
--- NOTE | 2019-08-17 18:28 | NUR ---
Problems reprioritized. Patient report given, questions answered & plan of care reviewed with SARIAH Pan.
--- NOTE | 2019-08-17 18:30 | NUR ---
Patient in room CICU 2013. I have received report from TEN ROLLE and had the opportunity to ask questions and assume patient care.
--- NOTE | 2019-08-17 21:04 | NUR ---
called Dr Carrion at approx 2030 to update him on pt condition and confirm that chest tube is to be set to 20cm suction, which he confirmed yes. it appears the orders put in were general CABG orders. Dr Camacho came by a few minutes ago, updated him on pt condition as well. pt is awake and following commands, even able to make her needs known. on 50mcg fentanyl during my shift, no versed or levophed at this time. SR in 60s
[2019-08-18] VITALS (19 sets, daily range): BP systolic 94–155; BP diastolic 54–89
[2019-08-18] MEDS: ceFAZolin 1GM/D5W- ADD-VANTAGE 50 ML IV SCH (00:20)
[2019-08-18] MEDS: HYDROcodone/acetaminophen 10/325mg tab PO PRN ×3 (00:23→20:25)
[2019-08-18 03:36] LABS: BASOPHILS % (AUTO) 0 % (0-1); EOSINOPHILS % (AUTO) 0 % (0-6); HEMATOCRIT 27.7 % (35.0-45.0); HEMOGLOBIN 9.1 g/dl (12.0-16.0); LYMPHOCYTES # (AUTO) 1.1 X10'3 (1.1-4.8); LYMPHOCYTES % (AUTO) 8.8 % (21-51); MEAN CORPUSCULAR HEMOGLOBIN 29.9 PG (27.0-31.0); MEAN CORPUSCULAR HGB CONC 32.8 g/dL (33.0-36.5); MEAN PLATELET VOLUME 10.2 FL (7.4-10.4); MONOCYTES # (AUTO) 0.8 X10'3 (0-0.9); MONOCYTES % (AUTO) 6.1 % (2-12); NEUTROPHILS % (AUTO) 85.1 % (42-75); PLATELET COUNT 111 X10'3 (140-440); RED BLOOD COUNT 3.04 X10'6 (4.20-5.60); RED CELL DISTRIBUTION WIDTH 14.3 % (11.5-14.5); WHITE BLOOD COUNT 12.9 X10'3 (4.5-11.0)
[2019-08-18 04:06] LABS: ALBUMIN 2.9 G/DL (3.4-5.0); ANION GAP 10 (8-16); BLOOD UREA NITROGEN 20 MG/DL (7-18); CALCIUM 8.3 MG/DL (8.5-10.1); CHLORIDE 107 MMOL/L (99-107); CREATININE 0.87 MG/DL (0.40-0.90); GLUCOSE 133 MG/DL (70-104); MAGNESIUM 2.2 MG/DL (1.5-2.4); PHOSPHORUS 3.4 MG/DL (2.3-4.5); POTASSIUM 4.8 MMOL/L (3.5-5.1); SODIUM 139 MMOL/L (135-145); eGFR 64 ML/MIN
[2019-08-18] MEDS: magnesium 2GM in 50ml NS 50 ML IV PRN (04:44)
--- NOTE | 2019-08-18 06:23 | NUR ---
Problems reprioritized. Patient report given, questions answered & plan of care reviewed with COBY ROLLE.
[2019-08-18] MEDS: pantoprazole 40mg Tablet.DR PO SCH (07:30)
[2019-08-18] MEDS: mupirocin 2% nasal ointment 1gm UD NS SCH (08:51)
[2019-08-18] MEDS: gabapentin 300mg capsule PO SCH (08:51)
[2019-08-18] MEDS: atorvastatin 10mg tablet PO SCH (08:51)
[2019-08-18] MEDS: aspirin 81mg tablet.DR PO SCH (08:51)
[2019-08-18] MEDS: docusate sod 100mg capsule PO SCH ×2 (08:51→20:24)
[2019-08-18] MEDS: sodium chloride 0.45% 1,000 ML IV SCH (11:18)
--- NOTE | 2019-08-18 11:47 | NUR ---
CABG Consult: Pt s/p CABG. Pt unable to wake sleeping during RD visit. Written CABG/HH eds along w/ RD contact information left at bedside. Pt will need reinforcement once more appropriate prior to d/c. Addendum: 08/18/19 at [address] Amended: Links added.
[2019-08-18] MEDS: NORepinephrine 8mg/ 250ml NS 250 ML IV SCH (12:05)
[2019-08-18] MEDS: insulin regular, human 100 UNIT in normal saline 100ml IV soln 100 ML IV SCH ×2 (23:40)
[2019-08-19] VITALS (11 sets, daily range): BP systolic 106–188; BP diastolic 62–95
[2019-08-19] MEDS: HYDROcodone/acetaminophen 10/325mg tab PO PRN ×2 (03:04→13:43)
[2019-08-19 05:11] LABS: ACT @ 1.70 U 228 SEC (193-297); ACT @ 2.84 U 286 SEC (260-420); BASELINE ACT 137 SEC (101-148); PATIENT WEIGHT 60.0k KG
[2019-08-19 05:11] LABS: ACTIVATED CLOTTING TIME 113 SEC (101-148)
[2019-08-19] MEDS: morphine 4 MG/ML inj SYRINge IV PRN (05:11)
[2019-08-19 05:15] LABS: BASOPHILS % (AUTO) 0.2 % (0-1); EOSINOPHILS % (AUTO) 0.1 % (0-6); HEMATOCRIT 26.5 % (35.0-45.0); HEMOGLOBIN 8.8 g/dl (12.0-16.0); LYMPHOCYTES % (AUTO) 15.5 % (21-51); MEAN CORPUSCULAR HEMOGLOBIN 30.4 PG (27.0-31.0); MEAN CORPUSCULAR HGB CONC 33.2 g/dL (33.0-36.5); MEAN CORPUSCULAR VOLUME 91.5 FL (78-98); MEAN PLATELET VOLUME 11.2 FL (7.4-10.4); MONOCYTES # (AUTO) 1.3 X10'3 (0-0.9); MONOCYTES % (AUTO) 9.9 % (2-12); NEUTROPHILS # (AUTO) 9.7 X10'3 (1.8-7.7); NEUTROPHILS % (AUTO) 74.3 % (42-75); PLATELET COUNT 129 X10'3 (140-440); RED BLOOD COUNT 2.89 X10'6 (4.20-5.60); RED CELL DISTRIBUTION WIDTH 14.3 % (11.5-14.5); WHITE BLOOD COUNT 13.1 X10'3 (4.5-11.0)
[2019-08-19] MEDS: sodium chloride 0.45% 1,000 ML IV SCH (05:52)
[2019-08-19 05:57] LABS: LARGE PLATELETS FEW; PLATELET ESTIMATE DECREASED
[2019-08-19 06:02] LABS: ALBUMIN 2.8 G/DL (3.4-5.0); ANION GAP 8 (8-16); BLOOD UREA NITROGEN 18 MG/DL (7-18); BUN/CREATININE RATIO 25.4 (6.6-38.0); CALCIUM 7.9 MG/DL (8.5-10.1); CHLORIDE 107 MMOL/L (99-107); CREATININE 0.71 MG/DL (0.40-0.90); GLUCOSE 104 MG/DL (70-104); MAGNESIUM 2.1 MG/DL (1.5-2.4); PHOSPHORUS 2.9 MG/DL (2.3-4.5); POTASSIUM 4.7 MMOL/L (3.5-5.1); SODIUM 140 MMOL/L (135-145); TOTAL CARBON DIOXIDE 25.4 MMOL/L (24-32); eGFR 81 ML/MIN
[2019-08-19] MEDS ORDERED: potassium CL 10mEq/100ml bag 100 ML IV PRN ×2 (07:00)
[2019-08-19] MEDS ORDERED: magnesium 2GM in 50ml NS 50 ML IV PRN (07:00)
[2019-08-19] MEDS ORDERED: magnesium Cl slow-release 64mg tablet PO PRN (07:00)
[2019-08-19] MEDS ORDERED: potassium Cl 20 mEq SR tablet PO PRN ×2 (07:00)
[2019-08-19] MEDS ORDERED: magnesium 4gm in 100ml NS 100 ML IV PRN (07:00)
[2019-08-19] MEDS: magnesium Cl slow-release 64mg tablet PO SCH ×2 (08:00→19:10)
[2019-08-19] MEDS: potassium Cl 20 mEq SR tablet PO SCH ×2 (08:00→19:10)
[2019-08-19] MEDS: docusate sod 100mg capsule PO SCH ×2 (08:00→19:34)
[2019-08-19] MEDS: K and/or MAG REPLACEMENT MC SCH (08:00)
[2019-08-19] MEDS: atorvastatin 10mg tablet PO SCH (08:21)
[2019-08-19] MEDS: pantoprazole 40mg Tablet.DR PO SCH (08:21)
[2019-08-19] MEDS: aspirin 81mg tablet.DR PO SCH (08:21)
--- NOTE | 2019-08-19 08:45 | NUR ---
External pacer turned off this morning by Dr Carrion during rounding. Rate has been SR so far this morning, few pac's with heart rate 70's to 80's, no bradycardia noted. Tolerated a walk 250 feet without symptoms.
--- NOTE | 2019-08-19 13:41 | NUR ---
Patient in room CICU 2013. I have received report from SARIAH Ayon and had the opportunity to ask questions and assume patient care.
[2019-08-19] MEDS: metoprolol tartrate 12.5mg (1/2 tablet) PO SCH ×2 (13:42→19:34)
--- NOTE | 2019-08-19 18:58 | NUR ---
Patient in room MED 308. I have received report from Emily ROLLE and had the opportunity to ask questions and assume patient care.
[2019-08-20] VITALS (8 sets, daily range): BP systolic 117–175; BP diastolic 70–103
--- NOTE | 2019-08-20 03:09 | NUR ---
Dr. Carrion notified, pt having acute confusing, EKG completed noted a- fib rvr peaked pulse 176, pt pulled pacing wires. SBP ranged 160-183/103-110, pt complaints of chest pain. unable to discribed. new order standard amidrone drip. no parameter for BP. will continue to monitor.
--- NOTE | 2019-08-20 03:18 | NUR ---
EKG read and signed from OCTAVIA cortez / protcol
[2019-08-20] MEDS ORDERED: amiodarone 150mg/dext, iso-os 100 ML IV ONE (03:25)
--- NOTE | 2019-08-20 03:50 | NUR ---
amidrone loading dose initated, QT 0.34, will continue to monitor
[2019-08-20] MEDS: amiodarone/D5 360MG/200ML BAG 200 ML IV SCH ×3 (04:07→15:19)
--- NOTE | 2019-08-20 04:50 | NUR ---
PT NOT VERBALLY REDIRCTABLE. MULTIPLE ATTEMPTS TO GET OUT OF BED, PT CONTINUE TO PULL ON PACER WIRES. CIAIO COUNTER MOLDER AWARE. CONTINUE TO REORIENT PT TO CURRENT ENVIROMENT. FALL PRECAUTION MAINTAINED, NO FALLS NOTED. FREQUENT ROUNDING.
--- NOTE | 2019-08-20 05:00 | NUR ---
Placed nurses aid at bedside for patient safety.
[2019-08-20 06:05] LABS: BASOPHILS % (AUTO) 0.2 % (0-1); EOSINOPHILS # (AUTO) 0.1 X10'3 (0-0.9); EOSINOPHILS % (AUTO) 0.4 % (0-6); HEMATOCRIT 31.8 % (35.0-45.0); HEMOGLOBIN 10.6 g/dl (12.0-16.0); LYMPHOCYTES % (AUTO) 13.8 % (21-51); MEAN CORPUSCULAR HEMOGLOBIN 30.3 PG (27.0-31.0); MEAN CORPUSCULAR HGB CONC 33.5 g/dL (33.0-36.5); MEAN CORPUSCULAR VOLUME 90.5 FL (78-98); MEAN PLATELET VOLUME 9.8 FL (7.4-10.4); MONOCYTES # (AUTO) 1.1 X10'3 (0-0.9); MONOCYTES % (AUTO) 7.8 % (2-12); NEUTROPHILS # (AUTO) 11.1 X10'3 (1.8-7.7); NEUTROPHILS % (AUTO) 77.8 % (42-75); PLATELET COUNT 224 X10'3 (140-440); RED BLOOD COUNT 3.51 X10'6 (4.20-5.60); RED CELL DISTRIBUTION WIDTH 13.8 % (11.5-14.5); WHITE BLOOD COUNT 14.3 X10'3 (4.5-11.0)
--- NOTE | 2019-08-20 06:05 | NUR ---
Patient in room MED 308. I have received report from SARIAH Denton and had the opportunity to ask questions and assume patient care.
[2019-08-20 06:10] LABS: ALBUMIN 3.3 G/DL (3.4-5.0); ANION GAP 10 (8-16); BLOOD UREA NITROGEN 15 MG/DL (7-18); BUN/CREATININE RATIO 18.8 (6.6-38.0); CALCIUM 8.7 MG/DL (8.5-10.1); CHLORIDE 106 MMOL/L (99-107); GLUCOSE 139 MG/DL (70-104); MAGNESIUM 1.7 MG/DL (1.5-2.4); SODIUM 142 MMOL/L (135-145); TOTAL CARBON DIOXIDE 26.2 MMOL/L (24-32); eGFR 70 ML/MIN
--- NOTE | 2019-08-20 07:00 | NUR ---
patient back in afib rate of 110. amio drip still running per md order
[2019-08-20] MEDS: pantoprazole 40mg Tablet.DR PO SCH (07:30)
[2019-08-20] MEDS: docusate sod 100mg capsule PO SCH ×2 (07:41→20:00)
[2019-08-20] MEDS: metoprolol tartrate 12.5mg (1/2 tablet) PO SCH (07:45)
[2019-08-20] MEDS: atorvastatin 10mg tablet PO SCH (07:45)
[2019-08-20] MEDS: K and/or MAG REPLACEMENT MC SCH (07:48)
[2019-08-20] MEDS: aspirin 81mg tablet.DR PO SCH (07:48)
[2019-08-20] MEDS: magnesium Cl slow-release 64mg tablet PO SCH ×3 (07:49→20:10)
[2019-08-20] MEDS: potassium Cl 20 mEq SR tablet PO SCH ×3 (07:49→20:10)
[2019-08-20] MEDS ORDERED: furosemide 40mg/4ml inj IV ONE (08:20)
--- NOTE | 2019-08-20 09:15 | NUR ---
patient back in Sinus Rhythm rate of 75.
[2019-08-20] MEDS ORDERED: FLU VACC QS2019-20 36MOS UP/PF 60 MCG/0.5 ML SYRINGE IMVAC ONE (10:00)
[2019-08-20] MEDS ORDERED: ATOR10TA PO (10:45)
[2019-08-20] MEDS ORDERED: DOCU100C40 PO (10:45)
[2019-08-20] MEDS ORDERED: ASPI-1071 PO (10:45)
[2019-08-20] MEDS ORDERED: ACET-1008 PO (10:45)
[2019-08-20] MEDS ORDERED: LISI-642 PO (10:45)
[2019-08-20] MEDS ORDERED: AMIO200T61 PO (10:45)
[2019-08-20] MEDS ORDERED: METO25TA6 PO (10:45)
--- NOTE | 2019-08-20 12:06 | NUR ---
Educated patient again on importance of K+ and Mag+ replacement up to Murali's preference. Patient agreed to take potassium and magnesium at this time.
--- NOTE | 2019-08-20 12:14 | NUR ---
F/u: Pt/family seen by RD for verbal CABG/HH diet ed reinforcement. Pt tearful and family present to encourage pt not to leave AMA during RD visit. Pt/family declined further concerns, declined additional proteins, and notified RD no cottage cheese, indian yogurt, and that pt is vegetarian. Dietary notified. meals. Recommend: 1. continue no concentrated sweets/vegetarian diet 2. bowel care as needed 3. weight per rx Addendum: 08/20/19 at [address] Amended: Links added.
--- NOTE | 2019-08-20 12:43 | NUR ---
PATIENT BECAME UPSET WANTING TO LEAVE AT 0825, DR. SIMS ENTERED THE ROOM TO ASSIST IN TALKING TO THE PATIENT AND DISCUSSION ERUPTED IN ARGUMENT. EDWINA HUANG CALLED R/T PATIENT BEING RISK TO HERSELF WHILE SOUMYA LINIP RUNNING. FRIENDS CALLED TO COME CONSOLE HER AND TAKE HER HOME. FRIENDS TALKED HER INTO STAYING IF HER FRIEND STAYS THE NIGHT.
--- NOTE | 2019-08-20 18:00 | NUR ---
Patient in room MED 308. I have received report from Zenia/Maria Luisa ROLLE's and had the opportunity to ask questions and assume patient care.
--- NOTE | 2019-08-20 18:36 | NUR ---
Problems reprioritized. Patient report given, questions answered & plan of care reviewed with SARIAH Gannon.
[2019-08-20] MEDS: metoprolol tartrate 25mg tablet PO SCH (20:11)
[2019-08-20] MEDS ORDERED: lisinopril 5mg tablet PO SCH (21:00)
[2019-08-21] VITALS: BP 114/74
[2019-08-21] MEDS: amiodarone/D5 360MG/200ML BAG 200 ML IV SCH (01:51)
[2019-08-21 02:00] VITALS: BP 102/55
[2019-08-21 03:55] LABS: BASOPHILS % (AUTO) 0.4 % (0-1); EOSINOPHILS # (AUTO) 0.1 X10'3 (0-0.9); EOSINOPHILS % (AUTO) 0.6 % (0-6); HEMATOCRIT 29.4 % (35.0-45.0); LYMPHOCYTES % (AUTO) 19.5 % (21-51); MEAN CORPUSCULAR HEMOGLOBIN 30.8 PG (27.0-31.0); MEAN CORPUSCULAR HGB CONC 34.1 g/dL (33.0-36.5); MEAN CORPUSCULAR VOLUME 90.2 FL (78-98); MEAN PLATELET VOLUME 9.4 FL (7.4-10.4); MONOCYTES # (AUTO) 0.9 X10'3 (0-0.9); MONOCYTES % (AUTO) 8.5 % (2-12); NEUTROPHILS # (AUTO) 7.2 X10'3 (1.8-7.7); PLATELET COUNT 235 X10'3 (140-440); RED BLOOD COUNT 3.26 X10'6 (4.20-5.60); RED CELL DISTRIBUTION WIDTH 14.1 % (11.5-14.5); WHITE BLOOD COUNT 10.1 X10'3 (4.5-11.0)
[2019-08-21 03:58] LABS: ALBUMIN 2.8 G/DL (3.4-5.0); ANION GAP 9 (8-16); BLOOD UREA NITROGEN 15 MG/DL (7-18); BUN/CREATININE RATIO 22.4 (6.6-38.0); CALCIUM 8.5 MG/DL (8.5-10.1); CHLORIDE 105 MMOL/L (99-107); CREATININE 0.67 MG/DL (0.40-0.90); GLUCOSE 103 MG/DL (70-104); MAGNESIUM 1.8 MG/DL (1.5-2.4); POTASSIUM 3.9 MMOL/L (3.5-5.1); SODIUM 140 MMOL/L (135-145); TOTAL CARBON DIOXIDE 25.8 MMOL/L (24-32); eGFR 86 ML/MIN
[2019-08-21 04:00] VITALS: BP 101/63
[2019-08-21 06:00] VITALS: BP 129/70
--- NOTE | 2019-08-21 06:51 | NUR ---
Problems reprioritized. Patient report given, questions answered & plan of care reviewed with Sarah/Sonya Rn's.
[2019-08-21] MEDS: K and/or MAG REPLACEMENT MC SCH (08:00)
[2019-08-21] MEDS ORDERED: amiodarone 200mg tablet PO SCH (08:25)
[2019-08-21] MEDS: HYDROcodone/acetaminophen 10/325mg tab PO PRN (08:34)
[2019-08-21] MEDS: atorvastatin 10mg tablet PO SCH (10:59)
[2019-08-21] MEDS: docusate sod 100mg capsule PO SCH (10:59)
[2019-08-21] MEDS: potassium Cl 20 mEq SR tablet PO SCH (10:59)
[2019-08-21 11:00] VITALS: BP 104/66
[2019-08-21] MEDS: pantoprazole 40mg Tablet.DR PO SCH (11:00)
[2019-08-21] MEDS: magnesium Cl slow-release 64mg tablet PO SCH (11:00)
[2019-08-21] MEDS: aspirin 81mg tablet.DR PO SCH (11:01)
[2019-08-21] MEDS: metoprolol tartrate 25mg tablet PO SCH (11:02)
[2019-08-21 15:00] VITALS: BP 106/64
== END 2019-08-21 16:05 | DRG 233 ==
LOC: ER 09:58 → ED HOLD 12:13 → EEVIPCON 12:13 → PCU 3S 13:48 → CICU 2S 17:56 → MED 3N 08-19 14:30
PROVIDERS: ADMIT Family Medicine; ATTEND Internal Medicine Cardiovascular Disease
PROC: 4A023N7 Measurement of Cardiac Sampling and Pressure, Left Heart, Percutaneous Approach (ICD-10-PCS; principal; 2019-08-14)
PROC: B2111ZZ Fluoroscopy of Multiple Coronary Arteries using Low Osmolar Contrast (ICD-10-PCS; 2019-08-14)
PROC: B3101ZZ Fluoroscopy of Thoracic Aorta using Low Osmolar Contrast (ICD-10-PCS; 2019-08-14)
PROC: B2151ZZ Fluoroscopy of Left Heart using Low Osmolar Contrast (ICD-10-PCS; 2019-08-14)
PROC: B3111ZZ Fluoroscopy of Right Brachiocephalic-Subclavian Artery using Low Osmolar Contrast (ICD-10-PCS; 2019-08-14)
PROC: B3121ZZ Fluoroscopy of Left Subclavian Artery using Low Osmolar Contrast (ICD-10-PCS; 2019-08-14)
PROC: B41F1ZZ Fluoroscopy of Right Lower Extremity Arteries using Low Osmolar Contrast (ICD-10-PCS; 2019-08-14)
PROC: B41C1ZZ Fluoroscopy of Pelvic Arteries using Low Osmolar Contrast (ICD-10-PCS; 2019-08-14)
PROC: B32T1ZZ Computerized Tomography (CT Scan) of Left Pulmonary Artery using Low Osmolar Contrast (ICD-10-PCS; 2019-08-15)
PROC: B3201ZZ Computerized Tomography (CT Scan) of Thoracic Aorta using Low Osmolar Contrast (ICD-10-PCS; 2019-08-15)
PROC: B32S1ZZ Computerized Tomography (CT Scan) of Right Pulmonary Artery using Low Osmolar Contrast (ICD-10-PCS; 2019-08-15)
PROC: 02HV33Z Insertion of Infusion Device into Superior Vena Cava, Percutaneous Approach (ICD-10-PCS; 2019-08-15)
PROC: 4A133B3 Monitoring of Arterial Pressure, Pulmonary, Percutaneous Approach (ICD-10-PCS; 2019-08-15)
PROC: 02HP32Z Insertion of Monitoring Device into Pulmonary Trunk, Percutaneous Approach (ICD-10-PCS; 2019-08-15)
PROC: 02100Z9 Bypass Coronary Artery, One Artery from Left Internal Mammary, Open Approach (ICD-10-PCS; 2019-08-16)
PROC: 021309W Bypass Coronary Artery, Four or More Arteries from Aorta with Autologous Venous Tissue, Open Approach (ICD-10-PCS; 2019-08-16)
PROC: 06BP4ZZ Excision of Right Saphenous Vein, Percutaneous Endoscopic Approach (ICD-10-PCS; 2019-08-16)
PROC: 5A1221Z Performance of Cardiac Output, Continuous (ICD-10-PCS; 2019-08-16)
PROC: B24BZZ4 Ultrasonography of Heart with Aorta, Transesophageal (ICD-10-PCS; 2019-08-16)
DX: I21.4 Non-ST elevation (NSTEMI) myocardial infarction (principal); I50.33 Acute on chronic diastolic (congestive) heart failure; I25.110 Atherosclerotic heart disease of native coronary artery with unstable angina pectoris; I49.5 Sick sinus syndrome; G89.29 Other chronic pain; I34.0 Nonrheumatic mitral (valve) insufficiency; I45.9 Conduction disorder, unspecified; I48.0 Paroxysmal atrial fibrillation; E78.5 Hyperlipidemia, unspecified; I44.30 Unspecified atrioventricular block; Z79.899 Other long term (current) drug therapy; Z79.82 Long term (current) use of aspirin; Z90.49 Acquired absence of other specified parts of digestive tract
CPT/HCPCS: 0232T; 93306; 93312; 93325; 93455; 93567; 96365; 96376; 99291; 36415; 36600; 71045; 71275; 80048; 80053; 81001; 82330; 82435; 82803; 82947; 82948; 83036; 83735; 84100; 84132; 84295; 84484; 85018; 85025; 85027; 85347; 85384; 85610; 85730; 86885; 86900; 86901; 86920; 87077; 87081; 87088; 87186; 93005; 93880; 93971; 94002; 94003; 94010; 94667; 94668; 97110; 97116; 97161; 97530; 99152; 99153; A4618; A6258; A6402; A6449; A7000; A7048; C1713; C1751; C1769; C9113; G0378; J0131; J0171; J0282; J0690; J1250; J1265; J1644; J1815; J1940; J2001; J2060; J2150; J2250; J2270; J2370; J2405; J2440; J2704; J2720; J2795; J2930; J3010; J3246; J3370; J3475; J3480; J3490; J7030; J7040; J7050; J7120; P9045; P9047; Q2037; Q9967